=== PATIENT | male | born 1965 | race Hispanic/Latino ===

== ENCOUNTER 2021-10-17 13:25 | Outpatient (CLI) | payer OTHER | END 2021-10-17 13:26 | disposition home or self-care (01) | LOC: TBSIIMAG 13:25 | PROVIDERS: ATTEND Physician Assistant | DX: S32.001A Stable burst fracture of unspecified lumbar vertebra, initial encounter for closed fracture (principal); M43.8X6 Other specified deforming dorsopathies, lumbar region | CPT/HCPCS: 72100 ==